=== PATIENT | female | born 1980 | race Caucasian/White ===

== ENCOUNTER 2019-09-26 07:57 | Outpatient (CLI) | payer OTHER ==
[2019-09-26] MEDS ORDERED: MOTRIN PO (08:47)
[2019-09-26] MEDS ORDERED: [UNRECOGNIZED DRUG - OTHER] PO (08:47)
[2019-09-26] MEDS ORDERED: TUMS PO (08:47)
[2019-09-26] MEDS ORDERED: ACET325T14 PO (08:47)
[2019-09-26] MEDS ORDERED: CHOL10003 PO (08:47)
[2019-09-26] MEDS ORDERED: LORA-445 PO (08:47)
[2019-09-26] MEDS ORDERED: MV-M1TAB25 PO (08:47)
== END 2019-09-26 23:59 | disposition home or self-care (01) ==
LOC: STAR 07:57
PROVIDERS: ATTEND Surgery
DX: Z02.9 Encounter for administrative examinations, unspecified (principal)

== ENCOUNTER 2019-11-29 11:08 | Outpatient (CLI) | payer OTHER ==
[~2019-11-29 11:08] MED LIST: ACET325T14 PO; CHOL10003 PO; LORA-445 PO; MOTRIN PO; MV-M1TAB25 PO; TUMS PO; [UNRECOGNIZED DRUG - OTHER] PO
[2019-11-29] MEDS ORDERED: CHOL10003 PO (12:41)
[2019-11-29] MEDS ORDERED: FOLI1TAB47 PO (12:41)
[2019-11-29] MEDS ORDERED: CETI10TA26 PO (12:41)
== END 2019-11-29 23:59 | disposition home or self-care (01) ==
LOC: STAR 11:08
PROVIDERS: ATTEND Surgery
DX: Z11.59 Encounter for screening for other viral diseases (principal)
CPT/HCPCS: U0001-CS

== ENCOUNTER → 2020-06-03 | Outpatient (CLI) | payer OTHER ==
[~2020-06-03] MED LIST changes: +CALC200T3 PO; +CETI10TA76 PO; +FOLI1TAB47 PO; +MULT-252 PO
== END | disposition home or self-care (01) ==
LOC: STAR 09:24
PROVIDERS: ATTEND Otolaryngology
DX: Z20.828 Contact with and (suspected) exposure to other viral communicable diseases (principal); Q67.4 Other congenital deformities of skull, face and jaw
CPT/HCPCS: 87635

== ENCOUNTER 2020-06-08 13:25 | Day surgery (SDC) | payer OTHER ==
[~2020-06-08] VITALS: Ht 162.6 cm; Wt 84.4 kg
[~2020-06-08 13:25] MED LIST changes: +DEXAMETHASONE 4 MG/ML, 1ML ONE; +ONDANSETRON 2MG/ML, 2ML ONE; +PROPOFOL 10 MG/ML, 20ML ONE; +PROPOFOL 10 MG/ML, 50ML ONE
[2020-06-08] MEDS ORDERED: CHLORHEXIDINE 15 ML UDC MM ONE (13:41)
[2020-06-08 13:47] VITALS: BP 133/93
[2020-06-08] MEDS ORDERED: LACTATED RINGERS 1,000 ML IV SCH (14:00)
[2020-06-08 14:21] LABS: HCG UR SG 1.028 (1.003-1.030)
[2020-06-08] MEDS ORDERED: COCAINE TOPICAL SOLN 4%, 4ML ONE (15:49)
[2020-06-08] MEDS ORDERED: OXYMETAZOLINE NASAL SPRAY 0.05%,30ML ONE (15:49)
[2020-06-08] MEDS ORDERED: EPINEPHRINE 1 MG/ML, 1ML ONE (15:49)
[2020-06-08] MEDS ORDERED: BACITRACIN OINT 500U/GM, 15 GM ONE (15:50)
[2020-06-08] MEDS ORDERED: LIDOCAINE 1%, 20ML ONE (15:50)
[2020-06-08] MEDS ORDERED: FENTANYL PF 100 MCG/2ML ONE (16:30)
[2020-06-08] MEDS ORDERED: KETOROLAC 30 MG/1 ML IV PRN (17:00)
[2020-06-08] MEDS ORDERED: hydrALAzine 20 MG/ML, 1ML IV PRN (17:00)
[2020-06-08] MEDS ORDERED: MEPERIDINE/PF 25MG/0.5ML IVPush PRN (17:00)
[2020-06-08] MEDS ORDERED: HYDROmorphone 2 MG/ML, 1ML IVPush PRN (17:00)
[2020-06-08] MEDS ORDERED: PROMETHAZINE 25 MG/ML, 1ML IV PRN (17:00)
[2020-06-08] MEDS ORDERED: ALBUTEROL SULFATE 2.5 MG/3 ML NPPB PRN (17:00)
[2020-06-08] MEDS ORDERED: ACETAMINOPHEN 325 MG TABLET PO PRN (17:00)
[2020-06-08] MEDS ORDERED: DIAZEPAM 5 MG/ML, 2ML IVPush PRN (17:00)
[2020-06-08] MEDS ORDERED: FENTANYL PF 100 MCG/2ML IV PRN (17:00)
[2020-06-08] MEDS ORDERED: LABETALOL 5MG/ML, 20ML IV PRN (17:00)
[2020-06-08] MEDS ORDERED: OXYcodone 5 MG/5 ML ORAL.SOL UDC PO PRN (17:00)
== END 2020-06-08 18:20 | disposition home or self-care (01) ==
LOC: OUT 13:25
PROVIDERS: ATTEND Otolaryngology
DX: Q30.3 Congenital perforated nasal septum (principal)
CPT/HCPCS: 30220; 81025; J0171; J1100; J2405; J2704; J3010; J7120